=== PATIENT | female | born 1985 | race African-American/Black ===

== ENCOUNTER 2016-08-24 16:39 | Emergency (ER) | payer OTHER ==
[2016-08-24 16:23] LABS: ASCORBIC ACID (UR NOT ORDER) 40 (NEG); BILIRUBIN, URINE NEGATIVE (NEG); ER URINALYSIS TAT 0 Hrs 11 Mins; KETONE, URINE TRACE MG/DL (NEG); LEUKOCYTE ESTERASE(NOT OR LARGE (NEG); NITRITE (URINE) NEG (NEG)
[2016-08-24 16:25] LABS: WBC (NOT ORDERED) (RFLEX) > 182 (0-5)
== END 2016-08-24 16:50 | disposition home or self-care (01) ==
LOC: ER 16:39
PROVIDERS: Nurse Practitioner
DX: N39.0 Urinary tract infection, site not specified (principal); Z88.2 Allergy status to sulfonamides; Z88.1 Allergy status to other antibiotic agents
CPT/HCPCS: 81001; 84703; 87086; 99283